=== PATIENT | male | born 1965 | race Hispanic/Latino ===

== ENCOUNTER 2022-12-14 12:44 | Emergency (ER) | payer SELFPAY ==
--- NOTE | 2022-12-14 13:47 | EDPHYS ---
Physician Documentation [facility] Name: Catarino Albarran Age: 57 yrs Sex: Male : 1965 Arrival Date: 12/14/2022 Time: 12:46 Bed 7 Private MD: ED Physician Vimal Smith HPI: 12/14 13:41 This 57 yrs old Male presents to ER via EMS with complaints of Blood Pressure Problem. rn 13:41 The patient has elevated blood pressure and discovered this during work physical. rn Onset: The symptoms/episode began/occurred 2 week(s) ago. Modifying factors: The symptoms are aggravated by anxiety. Associated signs and symptoms: Pertinent negatives: chest pain, dizziness, dyspnea, headache, lightheadedness, nausea, visual changes, vomiting, weakness. Severity of symptoms: At its worst the blood pressure was moderate, in the emergency department the blood pressure is unchanged. The patient has experienced similar episodes in the past. The patient has been recently seen by a physician:. 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 Pt also reports that recently given 10 days of BP med, and told to lose weight. Denies chest pain/sob/abd pain. . Historical: - Allergies: 12:53 No Known Allergies; jl7 - Home Meds: 12:53 None [Active]; jl7 - PMHx: 12:53 None; jl7 - PSHx: 12:53 None; jl7 - Immunization history:: Client reports having NOT received the Covid vaccine. - Social history:: Smoking status: Patient reports the use of cigarette tobacco products, denies chronic smoking, but will smoke occasionally. - Family history:: not pertinent. - Hospitalizations: : No recent hospitalization is reported. ROS: 13:41 Constitutional: Negative for fever, chills, and weight loss, Eyes: Negative for injury, rn pain, redness, and discharge, Neck: Negative for injury, pain, and swelling, Cardiovascular: Negative for chest pain, palpitations, and edema, Respiratory: Negative for shortness of breath, cough, wheezing, and pleuritic chest pain, Abdomen/GI: Negative for abdominal pain, nausea, vomiting, diarrhea, and constipation, Back: Negative for injury and pain, MS/Extremity: Negative for injury and deformity, Skin: Negative for injury, rash, and discoloration, Neuro: Negative for headache, weakness, numbness, tingling, and seizure. Exam: 13:41 Constitutional: This is a well developed, well nourished patient who is awake, alert, rn anxious Head/Face: Normocephalic, atraumatic. Neck: Trachea midline, no thyromegaly or masses palpated, and no cervical lymphadenopathy. Supple, full range of motion without nuchal rigidity, or vertebral point tenderness. No Meningismus. Cardiovascular: Tachycardic, regular. No pulse deficits. Respiratory: No increased work of breathing, no retractions or nasal flaring. Abdomen/GI: Soft, non-tender Skin: Warm, dry with normal turgor. Normal color with no rashes, no lesions, and no evidence of cellulitis. MS/ Extremity: Pulses equal, no cyanosis. Neurovascular intact. Full, normal range of motion. Equal circumference. Neuro: Awake and alert, GCS 15, oriented to person, place, time, and situation. Cranial nerves II-XII grossly intact. Motor strength 5/5 in all extremities. Sensory grossly intact. Cerebellar exam normal. Normal gait. 15:57 ECG was reviewed by the Attending Physician. rn Vital Signs: 12:46 BP 193 / 114; Pulse 106; Resp 18; Temp 98.2; Pulse Ox 99% on R/A; kr3 13:45 BP 166 / 93; rn 14:05 BP 166 / 93; Pulse 105; Resp 18; Pulse Ox 99% on R/A; kr3 MDM: 12:53 Patient medically screened. rn 13:41 Differential diagnosis: hypertensive crisis, Malignant HTN, anxiety, HTN, asymptomatic rn HTN. Data reviewed: vital signs, nurses notes. 13:45 Counseling: I had a detailed discussion with the patient and/or guardian regarding: the rn historical points, exam findings, and any diagnostic results supporting the discharge/admit diagnosis, the need for outpatient follow up, to return to the emergency department if symptoms worsen or persist or if there are any questions or concerns that arise at home. Response to treatment: the patient's symptoms have mildly improved after treatment, and as a result, I will discharge patient. Refusal of service: The patient/guardian displays adequate decision making capability and despite a detailed discussion of alternatives, benefits, risks, and consequences refuses: all lab tests, Medications, all X-rays. ED course: Pt declines workup here, yohan is here and states plans to take him to occupational health today upon discharge for further evaluation. Return precautions given and understood. . 12/14 12:53 Order name: EKG; Complete Time: 12:53 rn 12/14 12:53 Order name: Cardiac monitoring; Complete Time: 13:49 rn 12/14 12:53 Order name: EKG - Nurse/Tech; Complete Time: 13:49 rn EC:57 Rate is 94 beats/min. Rhythm is regular. Left axis deviation noted. QRS is positive in rn lead I and negative in lead aVF. NH interval is normal. QRS interval is normal. QT interval is normal. No Q waves. T waves are Normal. No ST changes noted. Clinical impression: NSR w/ Non-specific ST/T Changes. Interpreted by me. Reviewed by me. Administered Medications: No medications were administered Disposition Summary: 12/14/22 13:46 Discharge Ordered Location: Home rn Problem: new rn Symptoms: have improved rn Condition: Stable rn Diagnosis - Essential (primary) hypertension rn Followup: rn - With: Private Physician - When: As needed - Reason: Recheck today's complaints, Re-evaluation by your physician Discharge Instructions: - Discharge Summary Sheet rn - Hypertension, Adult rn - Managing Your Hypertension rn Forms: - Medication Reconciliation Form rn - Thank You Letter rn - Antibiotic pattern maker - Prescription Opioid Use rn Signatures: Vimal Smith MD MD rn Leal, Jahala, RN RN jl7
--- NOTE | 2022-12-14 13:47 | ER ---
Nurse's Notes [facility] Name: Catarino Albarran Age: 57 yrs Sex: Male : 1965 Arrival Date: 12/14/2022 Time: 12:46 Bed 7 Private MD: Diagnosis: Essential (primary) hypertension Presentation: 12/14 12:47 Chief complaint: EMS states: Checked BP on site 198/120, asymptomatic, 168/98 just jl7 prior to arrival to ED. Coronavirus screen: At this time, the client does not indicate any symptoms associated with coronavirus-19. Ebola Screen: No symptoms or risks identified at this time. Initial Sepsis Screen: Does the patient meet any 2 criteria? No. Patient's initial sepsis screen is negative. Does the patient have a suspected source of infection? No. Patient's initial sepsis screen is negative. Risk Assessment: Do you want to hurt yourself or someone else? Patient reports no desire to harm self or others. Onset of symptoms is unknown. 12:47 Method Of Arrival: EMS: [facility] jl7 12:47 Acuity: INEZ 3 jl7 Triage Assessment: 12:53 General: Appears in no apparent distress. uncomfortable, Behavior is cooperative, jl7 anxious. Pain: Denies pain. Historical: - Allergies: 12:53 No Known Allergies; jl7 - Home Meds: 12:53 None [Active]; jl7 - PMHx: 12:53 None; jl7 - PSHx: 12:53 None; jl7 - Immunization history:: Client reports having NOT received the Covid vaccine. - Social history:: Smoking status: Patient reports the use of cigarette tobacco products, denies chronic smoking, but will smoke occasionally. - Family history:: not pertinent. - Hospitalizations: : No recent hospitalization is reported. Screenin:06 [facility] ED Fall Risk Assessment (Adult) History of falling in the last 3 months, kr3 including since admission No falls in past 3 months (0 pts) Confusion or Disorientation No (0 pts) Intoxicated or Sedated No (0 pts) Impaired Gait No (0 pts) Mobility Assist Device Used No (0 pt) Altered Elimination No (0 pt) Score/Fall Risk Level 0 - 2 = Low Risk. Abuse screen: Denies threats or abuse. Nutritional screening: No deficits noted. Tuberculosis screening: No symptoms or risk factors identified. Assessment: 14:05 Reassessment: Patient appears in no apparent distress at this time. Patient and/or kr3 family updated on plan of care and expected duration. Pain level reassessed. Vital Signs: 12:46 BP 193 / 114; Pulse 106; Resp 18; Temp 98.2; Pulse Ox 99% on R/A; kr3 13:45 BP 166 / 93; rn 14:05 BP 166 / 93; Pulse 105; Resp 18; Pulse Ox 99% on R/A; kr3 ED Course: 12:46 Patient arrived in ED. kr3 12:53 Vimal Smith MD is Attending Physician. rn 12:53 Triage completed. jl7 12:53 Arm band placed on right wrist. jl7 13:00 Bed in low position. Call light in reach. Side rails up X 1. kr3 13:56 Maria Elena Cornell, RN is Primary Nurse. kr3 14:06 No provider procedures requiring assistance completed. Patient did not have IV access kr3 during this emergency room visit. Administered Medications: No medications were administered Medication: 14:07 VIS not applicable for this client. kr3 Outcome: 13:46 Discharge ordered by . rn 14:06 Patient left the ED. kr3 14:06 Discharged to home kr3 14:06 Condition: stable 14:06 Discharge instructions given to patient, Instructed on discharge instructions, follow up and referral plans. Demonstrated understanding of instructions, follow-up care. Signatures: Vimal Smith MD MD rn Leal, Jahala, RN RN jl7 Maria Elena Cornell, RICHAR MCQUEEN kr3
[2022-12-14 14:11] VITALS: BP 166/93; TEMP 98.2; O2SAT 99
--- NOTE | 2022-12-15 16:58 | EKG ---
Test Date: 2022-12-14 Test Time: 13:08:52 Engineer Internship: ROXANN MEASUREMENT RESULTS: Intervals: Rate: 94 FL: 180 QRSD: 106 QT: 368 QTc: 460 [place]: P: 55 FL: 180 QRS: -49 T: 48 INTERPRETIVE STATEMENTS: Normal sinus rhythm Left anterior fascicular block Abnormal ECG No previous ECG available for comparison Electronically Signed On 12-15-22 16:54:49 PROVIDER CONTRACTING CONSULTANT by Duarte Celeste
== END 2022-12-14 14:06 | disposition home or self-care (01) ==
LOC: ER 12:44
DX: I10 Essential (primary) hypertension (principal); F17.210 Nicotine dependence, cigarettes, uncomplicated
CPT/HCPCS: 93005